=== PATIENT | female | born 1935 | race Caucasian/White ===

== ENCOUNTER 2020-02-20 09:41 | Observation (INO) ==
[2020-02-20 10:16] LABS: Basophils % 0.4 %; Eosinophils # 0.1 K/mcL (0.0-0.6); Eosinophils % 1.2 %; Hemoglobin 13.8 g/dL (11.5-15.4); Immature Granulocytes % 0.7 % (0-4); Lymphocytes # 2.4 K/mcL (0.6-4.6); Lymphocytes % 35.6 %; Mean Corpuscular HGB Conc 32.1 g/dL (31.6-35.5); Mean Corpuscular Hemoglobin 29.9 pg (28.0-33.3); Mean Corpuscular Volume 93.1 fL (83.0-100.0); Mean Platelet Volume 10.6 fL (9.4-12.4); Monocytes # 0.5 K/mcL (0.0-1.3); Monocytes % 6.7 %; Neutrophils # 3.7 K/mcL (1.6-8.9); Platelet Count 237 K/mcL (140-400); Red Blood Count 4.62 M/mcL (3.82-4.97); Red Cell Distribution Width 13.3 % (11.5-14.5); Segmented Neutrophils % 55.4 %; White Blood Count 6.7 K/mcL (4.3-11.1)
[2020-02-20 10:33] LABS: BUN/Creatinine Ratio 23 (6-26); Blood Urea Nitrogen 27 mg/dL (8-23); Calcium 9.4 mg/dL (8.6-10.3); Carbon Dioxide 28 mEq/L (23-29); Chloride 105 mEq/L (98-107); Glucose 122 mg/dL (70-105); Magnesium 1.9 mg/dL (1.6-2.6); Osmolality,Calculated 294 (280-300); Potassium 4.3 mEq/L (3.5-5.1); Sodium 139 mEq/L (136-145); eGFR For African Americans 54 (> 60); eGFR For Non-African Americans 45 (> 60)
[2020-02-20 10:34] LABS: Troponin I < 0.03 ng/mL (< 0.04)
[2020-02-20 11:07] LABS: Adenovirus Not Detected (Not Detect); Bordetella Pertussis Not Detected (Not Detect); Chlamydophila pneumoniae Not Detected (Not Detect); Coronavirus 229E Not Detected (Not Detect); Coronavirus HKU1 Not Detected (Not Detect); Coronavirus NL63 Not Detected (Not Detect); Coronavirus OC43 Not Detected (Not Detect); Human Metapneumovirus Not Detected (Not Detect); Human Rhinovirus/Enterovirus Not Detected (Not Detect); Influenza A Subtype 2009 H1 Not Detected (Not Detect); Influenza B Not Detected (Not Detect); Mycoplasma pneumoniae Not Detected (Not Detect); Parainfluenza Virus 1 Not Detected (Not Detect); Parainfluenza Virus 2 Not Detected (Not Detect); Parainfluenza Virus 3 Not Detected (Not Detect); Parainfluenza Virus 4 Not Detected (Not Detect); Respiratory Syncytial Virus Not Detected (Not Detect); SARS-CoV-2 Not Detected (Not Detect)
[2020-02-20] MEDS ORDERED: Isovue-370 500 ML BOTTLE IVP ONE (13:20)
[2020-02-20] MEDS ORDERED: Perflutren Lipid Microsphere 1.3 ML in 0.9 % Sodium Chloride 8.7 ML IVP PRN (15:21)
[2020-02-20] MEDS ORDERED: 0.9 % Sodium Chloride 1,000 ML IVC SCH (15:30)
[2020-02-20] MEDS ORDERED: Naloxone 0.4 MG/ML INJ IVP PRN (15:32)
[2020-02-20] MEDS ORDERED: MOM Conc 10 ML UD.LIQ PO PRN (15:32)
[2020-02-20] MEDS ORDERED: Acetaminophen 325 MG TABLET PO PRN (15:32)
[2020-02-20 16:19] LABS: VBG HCO3 30 mEq/L (21-27); VBG PCO2 51 mmHg (41-51); VBG PH 7.37 pH Units (7.32-7.42); VBG PO2 43 mmHg (25-50)
[2020-02-21 05:35] LABS: INR 1.1
[2020-02-21 06:06] LABS: BUN/Creatinine Ratio 22 (6-26); Blood Urea Nitrogen 20 mg/dL (8-23); Calcium 9.2 mg/dL (8.6-10.3); Carbon Dioxide 25 mEq/L (23-29); Chloride 106 mEq/L (98-107); Glucose 98 mg/dL (70-105); Magnesium 1.9 mg/dL (1.6-2.6); Osmolality,Calculated 291 (280-300); Phosphorous 2.9 mg/dL (2.7-4.5); Sodium 139 mEq/L (136-145); eGFR For African Americans > 60 (> 60); eGFR For Non-African Americans 59 (> 60)
[2020-02-21 06:07] LABS: Chol/HDL Ratio 3.2 (0-4.9)
[2020-02-21 14:07] LABS: Estimated Average Glucose 123 mg/dl
[2020-02-21 15:02] VITALS: BP 117/71
[2020-02-22] MEDS ORDERED: MAGNESIUM CITRATE 100 MG PO SCH (09:00)
[2020-02-22] MEDS ORDERED: Multivit/Ca/Min/Fe/FA 1 TAB TABLET PO SCH (09:00)
[2020-02-22] MEDS ORDERED: Cholecalciferol (D-3) 1,000 UNIT (25MCG) TABLET PO SCH (09:00)
== END 2020-02-21 17:35 | disposition home or self-care (01) ==
LOC: 3BNU 09:41 → EMEROOARM 09:41 → 3BNU 15:40
PROVIDERS: ADMIT Internal Medicine; ATTEND Internal Medicine